=== PATIENT | male | born 1985 | race African-American/Black ===

== ENCOUNTER 2024-09-14 15:56 | Emergency (ER) | payer BC ==
[2024-09-14 16:15] LABS: APPEARANCE,URINE CLEAR; BILIRUBIN,URINE NEGATIVE (NEGATIVE); COLOR,URINE YELLOW; GLUCOSE,URINE NEGATIVE (NEGATIVE); KETONES,URINE NEGATIVE (NEGATIVE); LEUKOCYTE ESTERASE,URINE NEGATIVE (NEGATIVE); NITRITE,URINE NEGATIVE (NEGATIVE); OCCULT BLOOD,URINE NEGATIVE (NEGATIVE); PROTEIN,URINE NEGATIVE (NEGATIVE); UROBILINOGEN,URINE 0.2 EU/dL (<2.0)
[2024-09-14 17:45] LABS: C. TRACHOMATIS BY PCR DETECTED; N. GONORRHOEAE BY PCR NOT DETECTED
[2024-09-14] MEDS: Doxycycline 100 MG Cap PO ONE (18:49)
== END 2024-09-14 18:53 | disposition home or self-care (01) ==
LOC: MW.ED 15:56
DX: A74.9 Chlamydial infection, unspecified (principal); Z75.8 Other problems related to medical facilities and other health care
CPT/HCPCS: 36415; 81003; 86592; 87389; 87491; 87591; 99283; A9270